=== PATIENT | female | born 1985 | race Caucasian/White ===

== ENCOUNTER 2021-08-27 18:55 | Inpatient (IN) | payer BC ==
[~2021-08-27 18:55] MED LIST: Bupivacaine 0.25% 10 ML SDV ONE; Lidocaine 1.5% with EPINEPHrine 1:200,000 5 ML Amp ONE
[2021-08-27] MEDS ORDERED: Nalbuphine HCl 10 MG/ 1ML Amp IVPUSH PRN (19:13)
[2021-08-27] MEDS ORDERED: Famotidine 20 MG Tab PO PRN (19:23)
[2021-08-27] MEDS ORDERED: Oxytocin/Lactated Ringers 10 UNIT/1,000 ML BAG IV SCH (19:30)
[2021-08-27] MEDS ORDERED: Lactated Ringers 1,000 ML ONE (20:28)
[2021-08-27] MEDS: Lactated Ringers 1,000 ML IV SCH (20:40)
[2021-08-27] MEDS: Oxytocin/Lactated Ringers 10 UNIT/1,000 ML BAG IV SCH (20:41)
[2021-08-27] MEDS ORDERED: fentaNYL 100 MCG/2 ML SDV EPIDUR PRN (20:54)
[2021-08-27] MEDS ORDERED: ePHEDrine 50 MG/ML SDV IVPUSH PRN (20:54)
[2021-08-27] MEDS ORDERED: diphenhydrAMINE 50 MG/ML SDV IVPUSH PRN (20:54)
[2021-08-28] MEDS: Bupivacaine/fentaNYL/NS 100 ML Bag EPIDUR PRN ×3 (03:22→19:34)
[2021-08-28] MEDS: Lactated Ringers 1,000 ML IV SCH ×3 (03:45→18:58)
[2021-08-28] MEDS: Oxytocin/Lactated Ringers 10 UNIT/1,000 ML BAG IV SCH (11:25)
[2021-08-28] MEDS ORDERED: Oxytocin/Lactated Ringers 20 UNIT/1,000 ML BAG IV SCH (15:00)
[2021-08-28] MEDS ORDERED: diphenhydrAMINE 25 MG Cap PO ONE (19:19)
[2021-08-28] MEDS ORDERED: Misoprostol 200 MCG Tab PO ONE ×2 (23:00→23:10)
[2021-08-28] MEDS ORDERED: Methylergonovine 0.2 MG/1 ML Amp ONE (23:00)
[2021-08-28] MEDS ORDERED: HYDROmorphone 0.5 MG/0.5 ML Syringe IVPUSH ONE (23:34)
[2021-08-28] MEDS ORDERED: HYDROmorphone 0.5 MG/0.5 ML Syringe ONE (23:35)
[2021-08-28] MEDS ORDERED: Methylergonovine 0.2 MG/1 ML Amp IM PRN (23:50)
[2021-08-29] MEDS ORDERED: Benzocaine/Menthol 20%-0.5% Spray 78 GM Cannister TOP PRN (01:01)
[2021-08-29] MEDS ORDERED: Witch Hazel Medicated Pads 40/Jar TOP PRN (01:01)
[2021-08-29] MEDS ORDERED: Azithromycin 500 MG in Sodium Chloride 0.9% 250 ML IV ONE (01:01)
[2021-08-29] MEDS ORDERED: Docusate Sodium 100 MG Cap PO PRN (01:01)
[2021-08-29] MEDS: Ibuprofen 600 MG Tab PO PRN ×2 (02:34→14:14)
[2021-08-29] MEDS ORDERED: Prenatal Multivitamin with Calcium/Folic Acid/Iron Tab PO SCH (09:00)
[2021-08-29] MEDS: Acetaminophen 325 MG Tab PO PRN (14:14)
[2021-08-30] MEDS: Acetaminophen 325 MG Tab PO PRN (03:18)
[2021-08-30] MEDS: Ibuprofen 600 MG Tab PO PRN (03:29)
== END 2021-08-30 11:45 | disposition home or self-care (01) | DRG 560 ==
LOC: JD.OB 18:55 → OBSVTOIN 22:40 → JD.OB 08-28 22:41
PROVIDERS: ADMIT Obstetrics & Gynecology; ATTEND Obstetrics & Gynecology
PROC: 10E0XZZ Delivery of Products of Conception, External Approach (ICD-10-PCS; principal; 2021-08-27)
PROC: 3E033VJ Introduction of Other Hormone into Peripheral Vein, Percutaneous Approach (ICD-10-PCS; 2021-08-27)
PROC: 10907ZC Drainage of Amniotic Fluid, Therapeutic from Products of Conception, Via Natural or Artificial Opening (ICD-10-PCS; 2021-08-27)
PROC: 0HQ9XZZ Repair Perineum Skin, External Approach (ICD-10-PCS; 2021-08-27)
PROC: 3E0R3BZ Introduction of Anesthetic Agent into Spinal Canal, Percutaneous Approach (ICD-10-PCS; 2021-08-27)
PROC: 0U7C7ZZ Dilation of Cervix, Via Natural or Artificial Opening (ICD-10-PCS; 2021-08-27)
DX: O34.03 Maternal care for unspecified congenital malformation of uterus, third trimester (principal); O99.334 Smoking (tobacco) complicating childbirth; F17.210 Nicotine dependence, cigarettes, uncomplicated; O70.0 First degree perineal laceration during delivery; Z3A.39 39 weeks gestation of pregnancy; Z37.0 Single live birth; O72.1 Other immediate postpartum hemorrhage; Q51.3 Bicornate uterus; Z88.0 Allergy status to penicillin; Z91.09 Other allergy status, other than to drugs and biological substances; Z87.828 Personal history of other (healed) physical injury and trauma; O99.214 Obesity complicating childbirth
CPT/HCPCS: 36415; 51701; 51702; 59025; 59409; 82565; 82570; 83615; 84156; 84450; 84460; 84520; 84550; 85025; 85027; 86592; 86850; 86900; 86901; A9270-GY; C1726; J0456; J1170; J1200; J2210; J2590; J3010; J3490; J7050; J7120

== ENCOUNTER → 2021-09-04 | Day surgery (SDC) | payer BC ==
[~2021-09-04] MED LIST changes: -Bupivacaine 0.25% 10 ML SDV ONE; +Dexamethasone 4 MG/ML 5 ML MDV ONE; +HYDROmorphone 0.5 MG/0.5 ML Syringe IVPUSH PRN; +Ibuprofen 600 MG Tab PO PRN; +Ketorolac 30 MG/ML SDV IVPUSH SCH; +Ketorolac 30 MG/ML SDV ONE; +Lactated Ringers 1,000 ML IV SCH; +Lactated Ringers 1,000 ML ONE; +Lidocaine 1% 5 ML VIAL ONE; -Lidocaine 1.5% with EPINEPHrine 1:200,000 5 ML Amp ONE; +Metoclopramide 10 MG/2 ML SDV ONE; +Midazolam 1 MG/ML 2 ML SDV ONE; +Ondansetron 4 MG/2 ML SDV IVPUSH PRN; +Ondansetron 4 MG/2 ML SDV ONE; +Propofol 200 MG/20 ML SDV ONE; +ceFAZolin 2 GM Vial ONE; +fentaNYL 100 MCG/2 ML SDV IVPUSH PRN; +fentaNYL 250 MCG/5 ML SDV ONE
== END | disposition home or self-care (01) ==
LOC: JD.ED 03:24 → JD.SDS 08:08
PROVIDERS: ATTEND Obstetrics & Gynecology
DX: O73.1 Retained portions of placenta and membranes, without hemorrhage (principal); Q51.3 Bicornate uterus; N93.9 Abnormal uterine and vaginal bleeding, unspecified; R93.89 Abnormal findings on diagnostic imaging of other specified body structures; K21.9 Gastro-esophageal reflux disease without esophagitis; E66.9 Obesity, unspecified; J45.909 Unspecified asthma, uncomplicated; Z79.899 Other long term (current) drug therapy; Z88.0 Allergy status to penicillin; Z91.048 Other nonmedicinal substance allergy status; Z79.1 Long term (current) use of non-steroidal anti-inflammatories (NSAID)
CPT/HCPCS: 36415; 58999; 76857; 81001; 85025; 85610; 85730; J0690; J1100; J1885; J2250; J2405; J2704; J2765; J3010; J7120; 00940; 96360; 96361; 99140; 99284; 99285-25

== ENCOUNTER 2023-01-06 12:49 | Emergency (ER) | payer BC | END 2023-01-06 14:20 | disposition home or self-care (01) | LOC: JD.ED 12:49 | DX: K64.4 Residual hemorrhoidal skin tags (principal); E66.9 Obesity, unspecified; F17.210 Nicotine dependence, cigarettes, uncomplicated; Z68.29 Body mass index [BMI] 29.0-29.9, adult; Z88.0 Allergy status to penicillin; Z91.018 Allergy to other foods; Z91.011 Allergy to milk products; Z91.048 Other nonmedicinal substance allergy status; Z88.8 Allergy status to other drugs, medicaments and biological substances; Z88.5 Allergy status to narcotic agent; Z79.899 Other long term (current) drug therapy | CPT/HCPCS: 99283 ==